=== PATIENT | female | born 1985 | race African-American/Black ===

== ENCOUNTER 2017-07-08 08:36 | Emergency (ER) | payer OTHER ==
[~2017-07-08] VITALS: Ht 182.9 cm; Wt 69.0 kg
[2017-07-08 11:40] VITALS: BP 162/107
== END 2017-07-08 12:11 | disposition home or self-care (01) ==
LOC: ER 09:56
DX: L02.01 Cutaneous abscess of face (principal); E11.22 Type 2 diabetes mellitus with diabetic chronic kidney disease; E78.00 Pure hypercholesterolemia, unspecified; F17.200 Nicotine dependence, unspecified, uncomplicated; N18.6 End stage renal disease; H54.61 Unqualified visual loss, right eye, normal vision left eye; Z89.422 Acquired absence of other left toe(s); Z99.2 Dependence on renal dialysis
CPT/HCPCS: 99283

== ENCOUNTER 2019-04-22 09:04 | Emergency (ER) | payer MEDICARE, OTHER ==
[~2019-04-22] VITALS: Ht 172.7 cm; Wt 77.0 kg
[2019-04-22 10:11] LABS: EOSINOPHILS % 3.7 % (0.0-5.0); HEMOGLOBIN. 13.2 g/dL (12.0-16.0); MEAN CORPUSCULAR HEMOGLOBIN 30.4 pg (28.0-32.0); MEAN CORPUSCULAR VOLUME 91.6 fL (81.0-99.0); MEAN PLATELET VOLUME 9.2 fl (7.4-10.4); MONOCYTES % 6.7 % (2.0-8.0); NEUTROPHILS % 73.6 % (40.0-76.0); PLATELET 209 x1000/uL (130-400); RED BLOOD CELL COUNT 4.36 mill/uL (4.2-5.4); RED CELL DISTRIBUTION WIDTH 17.9 % (11.6-14.6)
[2019-04-22 10:12] LABS: CHLORIDE 91 mEq/L (98-107)
[2019-04-22 10:54] LABS: HCG SCREEN NEGATIVE
[2019-04-22 12:18] VITALS: BP 110/73
== END 2019-04-22 12:18 | disposition home or self-care (01) ==
LOC: ER 09:36 → CANBEDREQ 20:39
DX: E11.22 Type 2 diabetes mellitus with diabetic chronic kidney disease (principal); N18.6 End stage renal disease; E87.8 Other disorders of electrolyte and fluid balance, not elsewhere classified; E78.00 Pure hypercholesterolemia, unspecified; Z99.2 Dependence on renal dialysis
CPT/HCPCS: 36415; 71045; 82962; 84703; 93005; 99284